=== PATIENT | female | born 1935 | race Caucasian/White ===

== ENCOUNTER 2016-08-24 12:05 | Emergency (ER) | payer SELFPAY ==
[~2016-08-24] VITALS: Wt 51.0 kg
[2016-08-24] MEDS ORDERED: DICLOFENAC SODIUM 37.5 MG/ML VIAL IV STA (12:54)
[2016-08-24 13:12] LABS: ADD SCAN DIFF NO
[2016-08-24 13:15] LABS: BASOPHILS % 0.2 % (0.0-2.0); EOSINOPHILS # 0.1 10^3/ul (0.0-0.5); EOSINOPHILS % 1.2 % (0.0-7.0); HEMATOCRIT 44.4 % (37.0-47.0); HEMOGLOBIN 13.7 g/dl (12.0-16.0); LYMPHOCYTES # 1.6 10^3/ul (0.8-2.9); LYMPHOCYTES % 31.6 % (15.0-51.0); MEAN CORPUSCULAR HEMOGLOBIN 29.7 pg (29.0-33.0); MEAN CORPUSCULAR HGB CONC 30.9 g/dl (32.0-37.0); MEAN CORPUSCULAR VOLUME 96.3 fl (82.0-101.0); MONOCYTE # 0.4 10^3/ul (0.3-0.9); MONOCYTES % 8.3 % (0.0-11.0); NEUTROPHIL # 2.9 10^3/ul (1.6-7.5); NEUTROPHILS % 58.1 % (39.0-77.0); PLATELET COUNT 213 10^3/UL (140-415); RED BLOOD COUNT 4.61 10^6/ul (4.20-5.40); RED CELL DISTRIBUTION WIDTH 13.8 % (11.5-14.5)
[2016-08-24 13:24] LABS: ALBUMIN 4.3 g/dl (3.3-4.9)
[2016-08-24 13:27] LABS: ALBUMIN/GLOBULIN RATIO 1.07; BILIRUBIN,INDIRECT 0.7 mg/dl (0-1.1); BILIRUBIN,TOTAL 0.7 mg/dl (0.2-1.3); CREATININE 0.49 mg/dl (0.44-1.00); TOTAL PROTEIN 8.3 g/dl (6.1-8.1)
[2016-08-24 13:28] LABS: CALCIUM 9.4 mg/dl (8.4-10.2)
[2016-08-24 14:58] LABS: ADD UMIC YES; URINE BILIRUBIN (Dip) NEGATIVE (NEGATIVE); URINE BLOOD (Dip) NEGATIVE (NEGATIVE); URINE COLOR LT. YELLOW (YELLOW); URINE GLUCOSE (Dip) NEGATIVE (NEGATIVE); URINE KETONES (Dip) NEGATIVE (NEGATIVE); URINE LEUKOCYTE ESTERASE (Dip) 1+ (NEGATIVE); URINE NITRITE (Dip) NEGATIVE (NEGATIVE); URINE TOTAL PROTEIN (Dip) NEGATIVE (NEGATIVE); URINE UROBILINOGEN (Dip) 0.2 E.U./dL (0.1-1.0)
[2016-08-24 15:17] LABS: SQUAMOUS EPITHELIAL CELL,UR FEW; URINE RBCS 0-2 /HPF (0)
[2016-08-24 15:18] LABS: BACTERIA,URINE RARE
--- NOTE | 2016-08-24 15:23 | RADRPT ---
PROCEDURE: XR Knee. CLINICAL INDICATION: Pain. TECHNIQUE: AP, lateral and oblique views of the left knee were obtained. The images reviewed on a PACS workstation. COMPARISON: None. FINDINGS: The bones appear intact, with no evidence of fracture, erosion, demineralization, or dislocation. Th e alignment of the femorotibial and patellofemoral joints appears normal. Mild, tricompartmental ost eoarthritis with joint space narrowing and small osteophytes is noted. No evidence of effusion or so ft tissue swelling is present. IMPRESSION: No acute fracture, dislocation or joint effusion. Mild, tricompartmental osteoarthritis. RPTAT: QQ .Barb Peralta MD, MD Date Time Electronically viewed and signed by .Barb Peralta MD, on 08/24/2016 15:23 .F/
--- NOTE | 2016-08-24 15:24 | RADRPT ---
PROCEDURE: XR Hip. CLINICAL INDICATION: Pain TECHNIQUE: AP and frog lateral views of the left hip were performed. COMPARISON: None FINDINGS: There is normal mineralization and alignment. No fracture or osseous lesion is identified. Mild left hip osteoarthritis is present with small osteophytes and joint space narrowing. The pubis symphysi s and sacroiliac joints are intact. The soft tissues are unremarkable. IMPRESSION: No acute fracture or dislocation. Mild, left hip osteoarthritis. RPTAT: QQ .Barb Peralta MD, Date Time Electronically viewed and signed by .Barb Peralta MD, on 08/24/2016 15:24 .F/
[2016-08-24] MEDS ORDERED: NAPR-688 PO (15:34)
[2016-08-24] MEDS ORDERED: CIPR500T4 PO (15:35)
--- NOTE | 2016-08-24 15:41 | ERD ---
ER Documentation Chief Complaint Date/Time DATE: 08/24/16 TIME: 15:36 Chief Complaint LEG NUMBNESS, PAIN, DISCOMFORT, ONSET 4 DAYS HPI This 81-year-old female , in by family for being ambulatory but having left knee and left hip pain going on for 4 days now when she walks. Asses states the pain shoots up to her left flank sometimes. She denies any chest pain, shortness of breath, nausea, vomiting, or dizziness. She also denies any falls or injuries. ROS All systems reviewed and are negative except as per history of present illness. Medications Home Meds Active Scripts Ciprofloxacin Hcl* (Ciprofloxacin Hcl*) 500 Mg Tablet, 500 MG PO BID for 5 Days , TAB Prov:ANN-MARIE GUTIERREZ DO 08/24/16 Naproxen* (Naproxen*) 500 Mg Tablet, 375 MG PO BID Y for PAIN, #14 TAB Prov:ANN-MARIE GUTIERREZ DO 08/24/16 Physical Exam Vitals Vital Signs Date Time Temp Pulse Resp B/P Pulse Ox O2 Delivery O2 Flow Rate FiO2 08/24/16 12:25 70 20 130/66 98 Room Air 08/24/16 12:17 98.8 73 17 106/60 96 Physical Exam Const: [] No distress Head: Atraumatic Eyes: Normal Conjunctiva ENT: Normal External Ears, Nose and Mouth. Neck: Full range of motion..~ No meningismus. Resp: Clear to auscultation bilaterally Cardio: Regular rate and rhythm, no murmurs Abd: Soft, non tender, non distended. Normal bowel sounds Skin: No petechiae or rashes Back: No midline or flank tenderness Ext: No cyanosis, or edema. No pain but mild crepitus on flexion and extension of the left knee and some crepitus to a left circumflex degree on the right knee. No tenderness to palpation of hip joint. No deformities. Distal pulses intact. Neur: Awake and alert Psych: Normal Mood and Affect Result Diagram: 08/24/16 1300 08/24/16 1300 Results 24 hrs Laboratory Tests Test 08/24/16 13:00 08/24/16 14:45 White Blood Count 5.010^3/ul Red Blood Count 4.6110^6/ul Hemoglobin 13.7g/dl Hematocrit 44.4% Mean Corpuscular Volume 96.3fl Mean Corpuscular Hemoglobin 29.7pg Mean Corpuscular Hemoglobin Concent 30.9g/dl Red Cell Distribution Width 13.8% Platelet Count 16040^3/UL Mean Platelet Volume 9.0fl Neutrophils % 58.1% Lymphocytes % 31.6% Monocytes % 8.3% Eosinophils % 1.2% Basophils % 0.2% Nucleated Red Blood Cells % 0.0/100WBC Neutrophils # 2.910^3/ul Lymphocytes # 1.610^3/ul Monocytes # 0.410^3/ul Eosinophils # 0.110^3/ul Basophils # 0.010^3/ul Nucleated Red Blood Cells # 0.010^3/ul Sodium Level 141mmol/L Potassium Level 4.0mmol/L Chloride Level 99mmol/L Carbon Dioxide Level 30mmol/L Anion Gap 16 Blood Urea Nitrogen 11mg/dl Creatinine 0.49mg/dl Glucose Level 119mg/dl Calcium Level 9.4mg/dl Total Bilirubin 0.7mg/dl Direct Bilirubin 0.00mg/dl Indirect Bilirubin 0.7mg/dl Aspartate Amino Transf (AST/SGOT) 33IU/L Alanine Aminotransferase (ALT/SGPT) 23IU/L Alkaline Phosphatase 75IU/L Total Protein 8.3g/dl Albumin 4.3g/dl Globulin 4.00g/dl Albumin/Globulin Ratio 1.07 Lipase 142U/L Urine Color LT. YELLOW Urine Clarity CLEAR Urine pH 5.5 Urine Specific [place]vie 1.020 Urine Ketones NEGATIVE Urine Nitrite NEGATIVE Urine Bilirubin NEGATIVE Urine Urobilinogen 0.2 E.U./dL Urine Leukocyte Esterase 1+ Urine Microscopic RBC 0-2/HPF Urine Microscopic WBC 2-5/HPF Urine Squamous Epithelial Cells FEW Urine Bacteria RARE Urine Hemoglobin NEGATIVE Urine Glucose NEGATIVE% Urine Total Protein NEGATIVE Current Medications Medications (Trade) Dose Ordered Sig/Carlos Route PRN Reason Start Time Stop Time Status Last Admin Dose Admin Diclofenac Sodium (Dyloject) 37.5 mg ONCE STAT IV 08/24/16 12:54 08/24/16 12:56 DC 08/24/16 13:24 Procedures/MDM Patient with apparent osteoarthritis or possibly soft tissue problems with the left knee and hip. She also may have a urinary tract infection and she had 1+ leukocyte esterase in her urine. Going to discharge her with ciprofloxacin as well as 375 mg naproxen and instructions to follow up with a primary care doctor. Patient does not have a primary care doctor currently and I'm giving her list of the local community clinics for which she should establish care. I have stressed the importance of establishing regular medical care especially at her age. I explained this to family as well as the patient. Having her return the emergency room for any increasing pain or discomfort. Knee x-ray interpretation: I see no fracture dislocation, my last urethritis is present. Left hip x-ray interpretation: I see no fracture dislocation or foreign body. Mild osteoarthritis is again present. Departure Diagnosis: Primary Impression: Osteoarthritis of knee Additional Impressions: Osteoarthritis of hip Urinary tract infection Condition: Stable ANN-MARIE GUTIERREZ DO Aug 24, 2016 15:41
[2016-08-24 15:54] VITALS: BP 141/57; PULSE 61; RESP 18
== END 2016-08-24 16:04 | disposition home or self-care (01) ==
LOC: E/R 12:05
DX: M17.9 Osteoarthritis of knee, unspecified (principal); M16.9 Osteoarthritis of hip, unspecified; N39.0 Urinary tract infection, site not specified
CPT/HCPCS: 36415; 73510; 73562; 80053; 81001; 81003; 83690; 85025; 96374